=== PATIENT | male | born 2000 ===

== ENCOUNTER 2019-07-30 20:42 | Emergency (ER) | payer OTHER ==
[2019-07-30 20:52] VITALS: BP 132/80
--- NOTE | 2019-07-30 20:59 | UC ---
Upper Extremity HPI - HPI Summary HPI Summary: 18 yo [employer] student, slipped and fell about an hour ago, with persistent pain in the left elbow and wrist, with inability to extend at the elbow and to flex the wrist since the injury. Fell backward onto his buttocks, protecting the fall with his left arm. No hand weakness or numbness. - History of Current Complaint Chief Complaint: UCUpperExtremity Stated Complaint: ARM INJURY Time Seen by Provider: 07/30/19 20:58 Hx Obtained From: Patient Onset/Duration: Sudden Onset, Lasting Hours Severity Initially: Moderate Severity Currently: Moderate Pain Intensity: 5 Location Of Pain: Is Discrete @ - left elbow and left wrist Character: Aching Aggravating Factor(s): Movement, Extension Alleviating Factor(s): Ice, Rest Associated Signs And Symptoms: Positive: Swelling Related History: Dominant Hand Right - Risk Factors Non-Orthopedic Risk Factor: Negative DVT Risk Factors: Negative - Allergies/Home Medications Allergies/Adverse Reactions: Allergies Allergy/AdvReac Type Severity Reaction Status Date / Time No Known Allergies Allergy Verified 07/30/19 20:51 Home Medications: Home Medications NK [No Home Medications Reported] 07/30/19 [History Confirmed 07/30/19] PMH/Surg Hx/FS Hx/Imm Hx Previously Healthy: Yes - Surgical History Surgical History: None - Family History Known Family History: Positive: Non-Contributory - Social History Occupation: Student Lives: Dormitory/Roommates Alcohol Use: None Substance Use Type: None Smoking Status (MU): Never Smoked Tobacco Review of Systems All Other Systems Reviewed And Are Negative: Yes Constitutional: Positive: Negative Skin: Positive: Negative Eyes: Positive: Negative ENT: Positive: Negative Respiratory: Positive: Negative Cardiovascular: Positive: Negative Gastrointestinal: Positive: Negative Genitourinary: Positive: Negative Motor: Positive: Decreased ROM Neurovascular: Positive: Negative Musculoskeletal: Positive: Negative Neurological/Mental Status: Positive: Negative Psychological: Positive: Negative Is Patient Immunocompromised?: No Physical Exam Triage Information Reviewed: Yes Appearance: Well-Appearing, Pain Distress - mild to moderate Vital Signs: Initial Vital Signs Temp 97.9 F 07/30/19 20:43 Pulse 82 07/30/19 20:43 Resp 12 07/30/19 20:43 BP 132/80 07/30/19 20:43 Pulse Ox 98 07/30/19 20:43 Eye Exam: Normal ENT: Positive: Normal ENT inspection Respiratory: Positive: Lungs clear, Normal breath sounds Cardiovascular: Positive: RRR, No Murmur Musculoskeletal: Positive: Strength Intact, ROM Limited @ - left elbow lacks full extension, pain with flexion of the left wrist, limited to about 10 degrees. (improved movement noted post xray), Other: - normal pulse Neurological Exam: Normal Psychological Exam: Normal Skin Exam: Normal Diagnostics - Radiology No standard instances Radiology Interpretation Completed By: ED Physician Summary of Radiographic Findings: Left elobow + effusion, suspect radial head fracture. Left wrist without fracture. Upper Extremity Course/Dx - Course Course Of Treatment: Splint left elobow, ice, ibuprofen. Orthopedic referral. Ver[place]ica wrap to left wrist. - Differential Dx/Diagnosis Differential Diagnosis/HQI/PQRI: Contusion, Fracture (Closed), Strain Provider Diagnosis: Left radial head fracture, Sprain of left wrist Discharge ED - Sign-Out/Discharge Documenting (check all that apply): Patient Departure All imaging exams completed and their final reports reviewed: No - Discharge Plan Condition: Stable Disposition: HOME Patient Education Materials: Elbow Fracture (ED), Wrist Sprain (ED) Referrals: No Primary Care Phys,NOPCP [Primary Care Provider] - Elvira Moreno MD [Medical Doctor] - Additional Instructions: The radiologist will review my readings in the morning and you will be called if there are findings different from those reviewed tonight. Use ibuprofen 600mg every 6 hours as needed for control of pain. Continue to ice the left elbow and wrist every 2 to 3 hours. Keep the left arm splinted; call [facility] on Thursday to arrange an evaluation early next week. Follow up in the emergency room if you have increasing pain or problems. - Billing Disposition and Condition Condition: STABLE Disposition: Home
[2019-07-30] MEDS ORDERED: Ibuprofen TAB* 600 MG PO ONE (21:37)
--- NOTE | 2019-07-31 14:34 | UC ---
- Progress Note Progress Note: Reviewed Dr. Hsu's report--Radial head fracture on the left. Patient had been advied likely. Please call him to advise that radial head fracture is confirmed, and that he schedules with orthopedics as advised. Wrist xray: no fracture, same as wet read. Course/Dx - Diagnoses Provider Diagnoses: Left radial head fracture, Sprain of left wrist Discharge ED - Sign-Out/Discharge Documenting (check all that apply): Post-Discharge Follow Up All imaging exams completed and their final reports reviewed: Yes - Discharge Plan Condition: Stable Disposition: HOME Patient Education Materials: Elbow Fracture (ED), Wrist Sprain (ED) Referrals: No Primary Care Phys,NOPCP [Primary Care Provider] - Elvira Moreno MD [Medical Doctor] - Additional Instructions: The radiologist will review my readings in the morning and you will be called if there are findings different from those reviewed tonight. Use ibuprofen 600mg every 6 hours as needed for control of pain. Continue to ice the left elbow and wrist every 2 to 3 hours. Keep the left arm splinted; call [facility] on Thursday to arrange an evaluation early next week. Follow up in the emergency room if you have increasing pain or problems. - Billing Disposition and Condition Condition: STABLE Disposition: Home
--- NOTE | 2019-07-31 14:38 | UC ---
- Progress Note Progress Note: Duplicate note. Confirmed reading of radial head fracture. Course/Dx - Diagnoses Provider Diagnoses: Left radial head fracture, Sprain of left wrist Discharge ED - Sign-Out/Discharge All imaging exams completed and their final reports reviewed: No - Discharge Plan Condition: Stable Disposition: HOME Patient Education Materials: Elbow Fracture (ED), Wrist Sprain (ED) Referrals: No Primary Care Phys,NOPCP [Primary Care Provider] - Elvira Moreno MD [Medical Doctor] - Additional Instructions: The radiologist will review my readings in the morning and you will be called if there are findings different from those reviewed tonight. Use ibuprofen 600mg every 6 hours as needed for control of pain. Continue to ice the left elbow and wrist every 2 to 3 hours. Keep the left arm splinted; call [facility] on Thursday to arrange an evaluation early next week. Follow up in the emergency room if you have increasing pain or problems. - Billing Disposition and Condition Condition: STABLE Disposition: Home
== END 2019-07-30 21:51 | disposition home or self-care (01) ==
LOC: UCEAST 20:42
DX: S52.122A Displaced fracture of head of left radius, initial encounter for closed fracture (principal); S63.502A Unspecified sprain of left wrist, initial encounter; W01.0XXA Fall on same level from slipping, tripping and stumbling without subsequent striking against object, initial encounter; Y92.9 Unspecified place or not applicable
CPT/HCPCS: 99202; A9270-GY; G0463